=== PATIENT | male | born 1970 | race African-American/Black ===

== ENCOUNTER 2017-04-03 17:02 | Inpatient (IN) | payer MEDICARE ==
[~2017-04-03] VITALS: Ht 175.3 cm; Wt 104.8 kg
[2017-04-03] MEDS ORDERED: MIDAZOLAM HCL 2 MG/2 ML VIAL ONE (17:12)
[2017-04-03] MEDS ORDERED: PROPOFOL 10MG/ML 100ML 100 ML IV SCH (17:15)
[2017-04-03] MEDS ORDERED: SODIUM CHLORIDE 0.9% 1,000 ML IV ONE (17:16)
[2017-04-03] MEDS ORDERED: LORAZEPAM 2MG/ML CPJ ONE (17:26)
[2017-04-03] MEDS ORDERED: LORAZEPAM 2MG/ML CPJ IV ONE (17:30)
[2017-04-03] MEDS ORDERED: STERILE WATER FOR INJECTION 10ML VIAL ONE (17:30)
[2017-04-03] MEDS ORDERED: HYDRALAZINE 20MG/ML VIAL IV ONE ×2 (17:30→18:45)
[2017-04-03] MEDS ORDERED: VECURONIUM BROMIDE 10 MG/VIAL IV ONE (17:30)
[2017-04-03] MEDS ORDERED: ETOMIDATE 2MG/ML 10ML VIAL IV ONE (17:30)
[2017-04-03 18:05] LABS: BG BASE EXCESS 1.5 mmol/L (-2.0-2.0); BG CARBOXYHEMOGLOBIN 0.4 % (0.5-1.5); BG DEOXYHEMOGLOBIN 0.9 % (0.0-5.0); BG FRACTION INSPIRED OXYGEN 100; BG HCO3 ACT 29.2 mmol/L (22.0-26.0); BG METHEMOGLOBIN 0.3 % (0.0-1.5); BG OXYGEN SATURATION 99.1 % (92.0-98.5); BG OXYHEMOGLOBIN 98.4 % (94.0-97.0); BG PCO2 60.9 mmHg (35.0-45.0); BG PH 7.298 (7.350-7.450); BG PO2 200.7 mmHg (75.0-100.0); BG SAMPLE SITE LEFT FEMORAL; BG TIDAL VOLUME(mL) 600 mL; BG TOTAL HEMOGLOBIN 12.1 g/dL (12.0-18.0); BG VENT MODE VENT - A/C; BG VENT RATE 14 set
[2017-04-03 18:41] LABS: BASOPHILS % 0.1 % (0.0-2.0); EOSINOPHILS % 1.6 % (0.0-5.0); HEMATOCRIT. 38.3 % (42.0-52.0); HEMOGLOBIN. 12.1 g/dL (14.0-18.0); LYMPHOCYTES % 8.6 % (20.0-50.0); MEAN CORPUSCULAR HEMOGLOBIN 29.3 pg (28.0-32.0); MEAN CORPUSCULAR VOLUME 92.7 fL (80.0-94.0); MEAN PLATELET VOLUME 7.5 fl (7.4-10.4); MONOCYTES % 5.4 % (2.0-8.0); NEUTROPHILS % 84.3 % (40.0-76.0); PLATELET 112 x1000/uL (130-400); RED BLOOD CELL COUNT 4.13 mill/uL (4.7-6.1); RED CELL DISTRIBUTION WIDTH 15.4 % (11.6-14.6)
[2017-04-03] MEDS ORDERED: VANCOMYCIN 1 G PREMIX 200 ML IV ONE (18:45)
[2017-04-03] MEDS ORDERED: SODIUM CHLORIDE 0.9% 1000ML BAG (SEPSIS BOLUS) IV ONE (18:45)
[2017-04-03] MEDS ORDERED: LEVOFLOXACIN 750MG PREMIX 150 ML IV ONE (18:45)
[2017-04-03 18:50] LABS: INR 1.2; PARTIAL THROMBOPLASTIN TIME 27.6 sec (23.4-31.0); PROTHROMBIN TIME 12.2 sec (9.4-11.6)
[2017-04-03 18:52] LABS: CHLORIDE 99 mEq/L (98-107); ETHANOL BLOOD < 10 mg/dL
[2017-04-03 18:54] LABS: AMMONIA 51 uMol/L (<32)
[2017-04-03] MEDS ORDERED: GUAIFENESIN 200MG/10ML SUGAR FREE UDC PO PRN (20:00)
[2017-04-03] MEDS ORDERED: ACETAMINOPHEN 650MG SUPP PR PRN (20:00)
[2017-04-03] MEDS ORDERED: ACETAMINOPHEN 325MG TABLET PO PRN (20:00)
[2017-04-03] MEDS ORDERED: ACETAMINOPHEN 650MG/20.3ML UDC GT PRN (20:00)
[2017-04-03] MEDS ORDERED: LEVOFLOXACIN 500MG PREMIX 100 ML IV SCH (20:00)
[2017-04-03] MEDS ORDERED: IPRATROPIUM/ALBUTEROL 0.5-3(2.5)MG/3ML NEB INH PRN (20:00)
[2017-04-03] MEDS ORDERED: DIPHENHYDRAMINE 50MG/ML VIAL IV PRN (20:00)
[2017-04-03] MEDS ORDERED: MAGNESIUM/ALUMINUM HYDROXIDE/SIMETHICONE 30ML UDC PO PRN (20:00)
[2017-04-03] MEDS ORDERED: MORPHINE SULFATE 4 MG/ML CPJ (NOT FOR IM USE) IV PRN (20:00)
[2017-04-03] MEDS ORDERED: ONDANSETRON HCL 4MG/2ML VIAL IV PRN (20:00)
[2017-04-03] MEDS ORDERED: ASPIRIN 300MG SUPP PR ONE (20:00)
[2017-04-04] VITALS (76 sets, daily range): BP systolic 104–190; BP diastolic 48–91
[2017-04-04 03:04] LABS: TROPONIN I 3.4 ng/mL (0.00-0.04)
[2017-04-04 05:24] LABS: HEMATOCRIT. 31.2 % (42.0-52.0); HEMOGLOBIN. 9.9 g/dL (14.0-18.0); MEAN CORPUSCULAR VOLUME 91.4 fL (80.0-94.0); MEAN PLATELET VOLUME 8.2 fl (7.4-10.4); PLATELET 124 x1000/uL (130-400); RED BLOOD CELL COUNT 3.42 mill/uL (4.7-6.1)
[2017-04-04 05:59] LABS: CHLORIDE 99 mEq/L (98-107)
[2017-04-04] MEDS: SODIUM CHLORIDE 0.9% INJ 3ML FLUSH IVF SCH ×2 (06:00→14:00)
[2017-04-04 06:25] LABS: CREATINE KINASE 259 IU/L (39-308); HDL CHOLESTEROL 34 mg/dL (40-59); LDL CHOLESTEROL 68 mg/dL (5-100)
[2017-04-04 07:21] LABS: PLATELET ESTIMATE SLIGHTLY DECREASED
[2017-04-04] MEDS: IPRATROPIUM/ALBUTEROL 0.5-3(2.5)MG/3ML NEB INH SCH ×3 (08:20→20:20)
[2017-04-04 08:56] LABS: BG CARBOXYHEMOGLOBIN 0.4 % (0.5-1.5); BG DEOXYHEMOGLOBIN 8.4 % (0.0-5.0); BG FRACTION INSPIRED OXYGEN 50; BG HCO3 ACT 30.1 mmol/L (22.0-26.0); BG METHEMOGLOBIN 0.3 % (0.0-1.5); BG OXYGEN SATURATION 91.5 % (92.0-98.5); BG OXYHEMOGLOBIN 90.9 % (94.0-97.0); BG PCO2 46.9 mmHg (35.0-45.0); BG PH 7.425 (7.350-7.450); BG PO2 64.4 mmHg (75.0-100.0); BG SAMPLE SITE LEFT RADIAL; BG TIDAL VOLUME(mL) 600 mL; BG TOTAL HEMOGLOBIN 11.2 g/dL (12.0-18.0); BG VENT MODE VENT - A/C; BG VENT RATE 14 set
[2017-04-04] MEDS: CLONIDINE 0.1MG TABLET PO PRN (09:08)
[2017-04-04] MEDS: ENOXAPARIN 30MG/0.3ML SYR SUBCUT SCH (09:09)
[2017-04-04] MEDS: PANTOPRAZOLE SODIUM 40 MG/VIAL IV SCH (11:19)
[2017-04-04] MEDS: PROPOFOL 10MG/ML 100ML 100 ML IV PRN ×2 (11:20→17:07)
[2017-04-04] MEDS: CLOPIDOGREL 75MG TABLET PO SCH (12:16)
[2017-04-04 13:34] LABS: CREATINE KINASE MB FRACTION 2.9 ng/mL (0.5-3.6); T4 FREE 1.1 ng/dL (0.76-1.46)
[2017-04-04 13:46] LABS: TROPONIN I 2.8 ng/mL (0.00-0.04)
[2017-04-04] MEDS ORDERED: LIDOCAINE HCL/PF 1% 10 MG/ML 5ML VIAL ONE (14:45)
[2017-04-04] MEDS ORDERED: IOHEXOL-350 100 ML BOTTLE ONE (16:18)
[2017-04-04] MEDS ORDERED: VANCOMYCIN 500 MG PREMIX 100 ML IV NR (17:00)
[2017-04-04] MEDS ORDERED: VANCOMYCIN 1 G PREMIX 200 ML IV NR (17:00)
[2017-04-04] MEDS ORDERED: CLON0.3T PO (19:59)
[2017-04-04] MEDS ORDERED: FERR210T PO (19:59)
[2017-04-04] MEDS ORDERED: AMBR5TAB3 PO (19:59)
[2017-04-04] MEDS ORDERED: CINA30 PO (19:59)
[2017-04-04] MEDS ORDERED: ALPH100C PO (19:59)
[2017-04-04] MEDS ORDERED: GABA-531 PO (19:59)
[2017-04-04] MEDS ORDERED: LEVOFLOXACIN 250MG PREMIX 50 ML IV SCH (20:00)
[2017-04-04] MEDS: EPOETIN ALFA 4000UNITS/ML VIAL SUBCUT SCH (21:55)
[2017-04-05] VITALS (104 sets, daily range): BP systolic 93–168; BP diastolic 41–113
[2017-04-05] LABS: CREATINE KINASE MB FRACTION 1.9 ng/mL (0.5-3.6)
[2017-04-05 00:13] LABS: TROPONIN I 1.5 ng/mL (0.00-0.04)
[2017-04-05] MEDS: IPRATROPIUM/ALBUTEROL 0.5-3(2.5)MG/3ML NEB INH SCH ×3 (02:42→20:24)
[2017-04-05] MEDS: CLONIDINE 0.1MG TABLET PO PRN (05:17)
[2017-04-05 05:44] LABS: BASOPHILS % 0.6 % (0.0-2.0); EOSINOPHILS % 8.6 % (0.0-5.0); HEMATOCRIT. 29.5 % (42.0-52.0); HEMOGLOBIN. 9.5 g/dL (14.0-18.0); LYMPHOCYTES % 18.4 % (20.0-50.0); MEAN CORPUSCULAR HEMOGLOBIN 29.5 pg (28.0-32.0); MEAN CORPUSCULAR VOLUME 91.2 fL (80.0-94.0); MEAN PLATELET VOLUME 8.3 fl (7.4-10.4); MONOCYTES % 11.2 % (2.0-8.0); NEUTROPHILS % 61.2 % (40.0-76.0); PLATELET 115 x1000/uL (130-400); RED BLOOD CELL COUNT 3.23 mill/uL (4.7-6.1); RED CELL DISTRIBUTION WIDTH 15.1 % (11.6-14.6)
[2017-04-05 05:51] LABS: CREATINE KINASE MB FRACTION 1.8 ng/mL (0.5-3.6); PHOSPHORUS 7.7 mg/dL (2.5-4.9)
[2017-04-05 06:30] LABS: TROPONIN I 1.3 ng/mL (0.00-0.04)
[2017-04-05] MEDS ORDERED: NOREPINEPHRINE 4 MG in SODIUM CHLORIDE 0.9% 246 ML IV PRN (08:00)
[2017-04-05] MEDS: CLOPIDOGREL 75MG TABLET PO SCH (09:40)
[2017-04-05] MEDS: ASPIRIN 81MG TABLET PO SCH (09:40)
[2017-04-05] MEDS: ENOXAPARIN 30MG/0.3ML SYR SUBCUT SCH (09:41)
[2017-04-05] MEDS: PANTOPRAZOLE SODIUM 40 MG/VIAL IV SCH (09:41)
[2017-04-05] MEDS: PROPOFOL 10MG/ML 100ML 100 ML IV PRN ×5 (11:29→23:42)
[2017-04-05] MEDS: SODIUM CHLORIDE 0.9% INJ 3ML FLUSH IVF SCH (12:04)
[2017-04-05 13:28] LABS: BG BASE EXCESS 2.4 mmol/L (-2.0-2.0); BG DEOXYHEMOGLOBIN 2.7 % (0.0-5.0); BG FRACTION INSPIRED OXYGEN 40; BG METHEMOGLOBIN 0.2 % (0.0-1.5); BG OXYGEN SATURATION 97.3 % (92.0-98.5); BG OXYHEMOGLOBIN 97.1 % (94.0-97.0); BG PCO2 41.7 mmHg (35.0-45.0); BG PH 7.429 (7.350-7.450); BG PO2 103.4 mmHg (75.0-100.0); BG SAMPLE SITE LEFT BRACHIAL; BG TIDAL VOLUME(mL) 600 mL; BG TOTAL HEMOGLOBIN 11.3 g/dL (12.0-18.0); BG VENT MODE VENT - A/C; BG VENT RATE 14 set
[2017-04-05] MEDS: HYDROCODONE/ACETAMINOPHEN 5/325MG TABLET PO PRN (20:08)
[2017-04-05] MEDS ORDERED: LEVOFLOXACIN 500MG PREMIX 100 ML IV SCH (21:00)
[2017-04-06] VITALS (83 sets, daily range): BP systolic 92–206; BP diastolic 43–113
[2017-04-06] MEDS: PROPOFOL 10MG/ML 100ML 100 ML IV PRN ×3 (02:09→08:29)
[2017-04-06] MEDS: IPRATROPIUM/ALBUTEROL 0.5-3(2.5)MG/3ML NEB INH SCH ×4 (02:48→20:41)
[2017-04-06 05:52] LABS: BASOPHILS % 0.6 % (0.0-2.0); EOSINOPHILS % 10.7 % (0.0-5.0); HEMATOCRIT. 30.8 % (42.0-52.0); LYMPHOCYTES % 14.6 % (20.0-50.0); MEAN CORPUSCULAR HEMOGLOBIN 29.2 pg (28.0-32.0); MEAN CORPUSCULAR VOLUME 90.3 fL (80.0-94.0); MEAN PLATELET VOLUME 8.4 fl (7.4-10.4); MONOCYTES % 12.9 % (2.0-8.0); NEUTROPHILS % 61.2 % (40.0-76.0); PLATELET 133 x1000/uL (130-400); RED BLOOD CELL COUNT 3.41 mill/uL (4.7-6.1); RED CELL DISTRIBUTION WIDTH 15.1 % (11.6-14.6)
[2017-04-06 07:05] LABS: PHOSPHORUS 8.1 mg/dL (2.5-4.9)
[2017-04-06 08:40] LABS: BG BASE EXCESS 1.5 mmol/L (-2.0-2.0); BG CARBOXYHEMOGLOBIN 0.3 % (0.5-1.5); BG FRACTION INSPIRED OXYGEN 35; BG HCO3 ACT 26.3 mmol/L (22.0-26.0); BG METHEMOGLOBIN 0.2 % (0.0-1.5); BG OXYHEMOGLOBIN 96.5 % (94.0-97.0); BG PCO2 42.6 mmHg (35.0-45.0); BG PH 7.409 (7.350-7.450); BG PO2 100.6 mmHg (75.0-100.0); BG SAMPLE SITE LEFT RADIAL; BG TIDAL VOLUME(mL) 600 mL; BG TOTAL HEMOGLOBIN 10.7 g/dL (12.0-18.0); BG VENT MODE VENT - A/C; BG VENT RATE 14 set
[2017-04-06] MEDS: ASPIRIN 81MG TABLET PO SCH (08:59)
[2017-04-06] MEDS: ENOXAPARIN 30MG/0.3ML SYR SUBCUT SCH (08:59)
[2017-04-06] MEDS: CLOPIDOGREL 75MG TABLET PO SCH (08:59)
[2017-04-06] MEDS: PANTOPRAZOLE SODIUM 40 MG/VIAL IV SCH (08:59)
[2017-04-06] MEDS: HYDRALAZINE HCL 25MG TABLET PO SCH ×2 (08:59→21:00)
[2017-04-06] MEDS ORDERED: CLONIDINE 0.1MG TABLET PO SCH (09:15)
[2017-04-06] MEDS: CALCIUM ACETATE 667MG CAPSULE PO SCH ×3 (10:19→17:05)
[2017-04-06 10:40] LABS: BG BASE EXCESS 0.2 mmol/L (-2.0-2.0); BG CARBOXYHEMOGLOBIN 0.3 % (0.5-1.5); BG DEOXYHEMOGLOBIN 4.4 % (0.0-5.0); BG FRACTION INSPIRED OXYGEN 35; BG HCO3 ACT 25.6 mmol/L (22.0-26.0); BG METHEMOGLOBIN 0.2 % (0.0-1.5); BG OXYGEN SATURATION 95.6 % (92.0-98.5); BG OXYHEMOGLOBIN 95.1 % (94.0-97.0); BG PCO2 44.5 mmHg (35.0-45.0); BG PH 7.378 (7.350-7.450); BG PO2 88.9 mmHg (75.0-100.0); BG PRESSURE SUPPORT 8; BG SAMPLE SITE LEFT BRACHIAL; BG TOTAL HEMOGLOBIN 11.4 g/dL (12.0-18.0); BG VENT MODE VENT - CPAP
[2017-04-06] MEDS: HYDROCODONE/ACETAMINOPHEN 5/325MG TABLET PO PRN (14:04)
[2017-04-06] MEDS: GABAPENTIN 300MG CAPSULE PO SCH (20:36)
[2017-04-06] MEDS: EPOETIN ALFA 4000UNITS/ML VIAL SUBCUT SCH (21:00)
[2017-04-07] VITALS (7 sets, daily range): BP systolic 130–152; BP diastolic 71–90
[2017-04-07] MEDS: IPRATROPIUM/ALBUTEROL 0.5-3(2.5)MG/3ML NEB INH SCH ×3 (01:35→14:19)
[2017-04-07] MEDS: SODIUM CHLORIDE 0.9% INJ 3ML FLUSH IVF SCH (06:19)
[2017-04-07 06:54] LABS: BASOPHILS % 0.3 % (0.0-2.0); EOSINOPHILS % 9.6 % (0.0-5.0); HEMATOCRIT. 30.1 % (42.0-52.0); HEMOGLOBIN. 9.9 g/dL (14.0-18.0); LYMPHOCYTES % 11.4 % (20.0-50.0); MEAN CORPUSCULAR HEMOGLOBIN 29.7 pg (28.0-32.0); MEAN PLATELET VOLUME 7.8 fl (7.4-10.4); MONOCYTES % 12.8 % (2.0-8.0); NEUTROPHILS % 65.9 % (40.0-76.0); PLATELET 126 x1000/uL (130-400); RED BLOOD CELL COUNT 3.34 mill/uL (4.7-6.1); RED CELL DISTRIBUTION WIDTH 15.2 % (11.6-14.6)
[2017-04-07 08:04] LABS: PHOSPHORUS 9.8 mg/dL (2.5-4.9)
[2017-04-07] MEDS: FERRIC CITRATE 210 MG PO SCH ×2 (08:44→13:53)
[2017-04-07] MEDS: PANTOPRAZOLE SODIUM 40 MG/VIAL IV SCH (08:45)
[2017-04-07] MEDS: GABAPENTIN 300MG CAPSULE PO SCH ×3 (08:45→18:32)
[2017-04-07] MEDS: CALCIUM ACETATE 667MG CAPSULE PO SCH ×3 (08:45→18:32)
[2017-04-07] MEDS: CLOPIDOGREL 75MG TABLET PO SCH (08:45)
[2017-04-07] MEDS: HYDRALAZINE HCL 25MG TABLET PO SCH (08:46)
[2017-04-07] MEDS: ASPIRIN 81MG TABLET PO SCH (08:46)
[2017-04-07] MEDS: ENOXAPARIN 30MG/0.3ML SYR SUBCUT SCH (08:49)
[2017-04-07] MEDS: CLONIDINE 0.3MG TABLET PO SCH ×2 (08:50→17:00)
[2017-04-07] MEDS ORDERED: CINACALCET HCL 60MG TABLET PO SCH (09:00)
[2017-04-07] MEDS ORDERED: [UNRECOGNIZED DRUG - OTHER] PO SCH (09:00)
[2017-04-07] MEDS ORDERED: REGADENOSON 0.4 MG/5 ML IV NR (10:00)
[2017-04-07] MEDS ORDERED: REGADENOSON 0.4 MG/5 ML IV ONE (11:11)
[2017-04-07] MEDS: HYDROCODONE/ACETAMINOPHEN 5/325MG TABLET PO PRN (13:52)
[2017-04-07] MEDS ORDERED: FERRIC CITRATE 210 MG PO SCH (17:00)
[2017-04-07] MEDS ORDERED: VANCOMYCIN 1 G PREMIX 200 ML IV NR (20:00)
[2017-04-08] MEDS ORDERED: CINACALCET HCL 60MG TABLET PO SCH (09:00)
== END 2017-04-07 20:59 | disposition home or self-care (01) | DRG 208 ==
LOC: ER 17:15 → MICUSO 20:01 → EDBEDREQ 20:05 → EDBEDREQSVC 20:05 → EDBEDREQTM 20:05 → 6WST 04-07 01:00
PROVIDERS: ADMIT Family Medicine; ATTEND Family Medicine
PROC: 5A1945Z Respiratory Ventilation, 24-96 Consecutive Hours (ICD-10-PCS; principal; 2017-04-03)
PROC: 0BH17EZ Insertion of Endotracheal Airway into Trachea, Via Natural or Artificial Opening (ICD-10-PCS; 2017-04-03)
PROC: 06HY33Z Insertion of Infusion Device into Lower Vein, Percutaneous Approach (ICD-10-PCS; 2017-04-04)
PROC: 5A1D70Z Performance of Urinary Filtration, Intermittent, Less than 6 Hours Per Day (ICD-10-PCS; 2017-04-04)
PROC: 5A1D70Z Performance of Urinary Filtration, Intermittent, Less than 6 Hours Per Day (ICD-10-PCS; 2017-04-06)
PROC: 5A1D70Z Performance of Urinary Filtration, Intermittent, Less than 6 Hours Per Day (ICD-10-PCS; 2017-04-07)
DX: J96.02 Acute respiratory failure with hypercapnia (principal); I21.4 Non-ST elevation (NSTEMI) myocardial infarction; G93.40 Encephalopathy, unspecified; I13.2 Hypertensive heart and chronic kidney disease with heart failure and with stage 5 chronic kidney disease, or end stage renal disease; J18.9 Pneumonia, unspecified organism; N18.6 End stage renal disease; D69.6 Thrombocytopenia, unspecified; I50.9 Heart failure, unspecified; D64.9 Anemia, unspecified; Z78.1 Physical restraint status; Z82.49 Family history of ischemic heart disease and other diseases of the circulatory system; Z99.2 Dependence on renal dialysis
CPT/HCPCS: 31500; 36415; 36569; 36600; 51702; 70450; 71045; 71275; 76937; 78452; 78580; 80048; 80053; 80061; 80202; 82140; 82375; 82550; 82553; 82805; 82962; 83036; 83605; 83735; 83880; 84100; 84439; 84443; 84478; 84484; 85025; 85379; 85610; 85730; 86850; 86900; 87040; 92610; 93005; 93017; 93306; 93970; 94002; 94003; 94640; 94664; 96365; 96375; 96376; 97162; 99291; A4216; A9500; C9113; G0482; J0360; J0885; J1200; J1650; J1956; J2060; J2250; J2704; J2785; J3370; J3490; J7030; J7050; J7620; Q9967